=== PATIENT | female | born 1965 | race Caucasian/White ===

== ENCOUNTER 2021-08-06 13:47 | Emergency (ER) | payer OTHER ==
[~2021-08-06 13:47] MED LIST: BENADRYL25 MG PO; BENTYL10 MG PO; CLARITIN10 MG PO; DITROPAN5 MG PO; FEMARA2.5 MG PO; FLOVENT HF120 PUFFS/ INH; HCTZ12.5 MG PO; METHOCARBAMOL500 MG PO; MIRAPEX0.25 MG PO; ONDANSETRON ODT4 MG PO; PREVACID30 M1 PO; PROTONIX 40MG T40 MG PO; REQUIP1 MG PO; TESSALON PERLE100 MG PO; VITAMIN D35000 UNIT PO
[2021-08-06] MEDS ORDERED: BACTRIM DS TAB1 EACH PO (14:54)
[2021-08-06] MEDS ORDERED: CLEOCIN HCL150 MG PO (14:54)
== END 2021-08-06 15:44 | disposition home or self-care (01) ==
LOC: FER 13:47
DX: S21.112A Laceration without foreign body of left front wall of thorax without penetration into thoracic cavity, initial encounter (principal); S41.132A Puncture wound without foreign body of left upper arm, initial encounter; Z23 Encounter for immunization; Z88.0 Allergy status to penicillin; Z88.1 Allergy status to other antibiotic agents; W54.0XXA Bitten by dog, initial encounter; Y92.009 Unspecified place in unspecified non-institutional (private) residence as the place of occurrence of the external cause
CPT/HCPCS: 90471; 90714; 90715

== ENCOUNTER → 2022-04-24 | Day surgery (SDC) | payer OTHER ==
[~2022-04-24] VITALS: Ht 165.1 cm; Wt 93.0 kg
[~2022-04-24] MED LIST changes: +24 HOUR ALLER15.8 ML; +BACTRIM DS TAB1 EACH PO; +BUSPAR5 MG PO; +CLEOCIN HCL150 MG PO; +DICLOFENAC SODI50 MG PO; +EPINEPHRIN0.3 MG/0.3 IJ; +VITAMIN E450 M1 PO; +ZYRTEC10 MG PO
== END | disposition home or self-care (01) ==
LOC: FAS 07:20
DX: Z12.11 Encounter for screening for malignant neoplasm of colon (principal); K63.5 Polyp of colon; K29.50 Unspecified chronic gastritis without bleeding; K22.4 Dyskinesia of esophagus; K20.0 Eosinophilic esophagitis; B96.81 Helicobacter pylori [H. pylori] as the cause of diseases classified elsewhere; I10 Essential (primary) hypertension; Z86.010 Personal history of colon polyps; Z88.0 Allergy status to penicillin; Z88.1 Allergy status to other antibiotic agents
CPT/HCPCS: J2704; J7120